=== PATIENT | female | born 1990 | race Caucasian/White ===

== ENCOUNTER 2016-05-02 12:34 | Emergency (ER) | payer SELFPAY ==
[2016-05-02 13:39] VITALS: BP 139/89; PULSE 82; TEMP 98.1; BMI 24.5
[2016-05-02] MEDS ORDERED: TRAMADOL HCL 50 MG TAB PO ONE (13:40)
[2016-05-02] MEDS ORDERED: DOXYCYCLINE 100 MG/TAB PO ONE (13:40)
--- NOTE | 2016-05-02 13:43 | EDPRACDOC ---
- General Information Chief Complaint: Toothache Stated Complaint: TOOTH PAIN Time Seen by Provider: 05/02/16 13:34 Information Source: Patient Mode Of Arrival: Car Home Medications: Home Medications Lamotrigine [Lamictal] 100 mg PO BID 01/10/15 Quetiapine Fumarate [Seroquel] 200 mg PO HS 01/10/15 Doxycycline [Vibramycin] 100 mg PO BID #42 tab 05/02/16 Tramadol HCl [Ultram] 50 mg PO Q6H #14 tab 05/02/16 Allergies/Adverse Reactions: Allergies Allergy/AdvReac Type Severity Reaction Status Date / Time amoxicillin [Amoxicillin] Allergy Unknown Unknown Verified 05/19/15 10:20 Penicillins Allergy Unknown Unknown/See Verified 05/19/15 10:20 Comments - History of Present Illness Onset: SEVERAL DAYS AGO HPI: PT PRESENTS WITH PAIN AND SWELLING AFTER FRACTURE OF RIGHT UPPER 2ND MOLAR. Reported Tooth Problem: RIGHT UPPER SECOND MOLAR Pain Severity: Reports: Moderate Relevant History of: Reports: None Modifying Factors: improves with: Heat, Cold, Chewing Associated Signs and Symptoms: Reports: None ED Past Medical History - History Reviewed Yes Nurses notes reviewed and agree except as marked - Patient Medical History Cardiac History: Reports: Syncope - Family Medical History Reports: Diabetes - Social Medical History Smoking Status: Heavy tobacco smoker (5 or more cigarettes/day or daily pipe/ cigar) EDM Review of Systems - Review of Systems ROS Negative Except as Marked: Yes All systems reviewed and were negative except as marked - Physical Exam Constitutional: Alert Oriented to: Time, Person, Place Last recorded Vital Signs: Last Vital Signs Temp 98.1 F 05/02/16 13:29 Pulse 82 05/02/16 13:29 Resp 18 05/02/16 13:29 BP 139/89 05/02/16 13:29 Pulse Ox 98 05/02/16 13:29 Oxygen Pulse Oxygen Saturation 98 O2 Device Oxygen Flow Rate Fraction of Inspired Oxygen ( FIO2) - HEENT Head: Normal ( normocephalic) Eye Exam: Normal (PERRL, EOMI, Sclera white) Oropharynx: Normal (Pharynx:Moist without exudate,Gums-no swelling) Tympanic Membrane: Normal Nose: No Symptoms Reported (septum midline) Neck: Normal (FROM, trachea at midline) - Respiratory/Cardiovascular Respiratory: Normal - CTA (BBS clear to auscultation without adventitious sounds ) Cardiovascular: Normal (RRR without murmur, gallop or rub) - GI Auscultation: Normal (NABS) Palpation: Normal (Soft,No rebound or guarding, non distended) Tenderness: Non tender Andino's Sign: Negative Rectal Exam: Deferred - Musculoskeletal Back: Normal (Non-Tender) Extremities: Normal (Normal tone, Pulses 2+ No cyanosis or edema, FROM) - Integumentary Skin: Normal, Warm, Dry Lymphatics: Normal (no adenopathy) - Neurologic Memory Impaired: Normal Motor Function: Normal (Normal tone, Pulses 2+ No cyanosis or edema, FROM) Cranial Nerve: Normal (CN II-X11 intact sensation, strength 5/5) Cerebellar: Normal Mood Description: Normal Perception: Normal ED Tooth Problem Exam - HEENT Face: Normal Teeth: Right: Molar-2 Upper (BROKE) Gingiva: Tender, Swelling Palate: Normal Mouth Range of Motion: Normal Sinuses: Normal Oropharynx: Normal Neck: Normal - Differential Diagnosis Periodontal Abscess, Tooth Fracture Decision Time to Discharge: 13:42 - Departure Disposition: Home Condition: Stable Final Diagnosis: Acute periodontal abscess Tooth fracture Qualifiers: Encounter type: initial encounter Fracture type: closed Qualified Code(s): S02.5XXA - Fracture of tooth (traumatic), initial encounter for closed fracture Instructions: Dental Abscess (ED), Toothache (ED) Education/Counseling Given To: Patient Education/Counseling Given Regarding: Diagnosis, Treatment, Prognosis, Follow Up Referrals: [facility] [NonStaff[facility] - One Week Prescriptions: Doxycycline [Vibramycin] 100 mg PO BID #42 tab Tramadol HCl [Ultram] 50 mg PO Q6H #14 tab Additional Instructions: INCREASE FLUID INTAKE. FOLLOW UP WITH PRIMARY CARE PROVIDER NEXT WEEK. TAKE ALL ANTIBIOTICS PRESCRIBED. RETURN TO THE ED FOR WORSENING SYMPTOMS OR CONCERNS.
== END 2016-05-02 13:49 | disposition home or self-care (01) ==
LOC: EDMC 12:34
DX: K05.219 Aggressive periodontitis, localized, unspecified severity (principal); S02.5XXA Fracture of tooth (traumatic), initial encounter for closed fracture; X58.XXXA Exposure to other specified factors, initial encounter; Y93.9 Activity, unspecified
CPT/HCPCS: 99282; J3490